=== PATIENT | male | born 1945 | race Caucasian/White ===

== ENCOUNTER 2022-05-05 18:46 | Emergency (ER) | payer MEDICAID, MEDICARE, OTHER ==
[~2022-05-05] VITALS: Ht 182.9 cm; Wt 80.0 kg
[2022-05-05 18:55] VITALS: BP 150/74
== END 2022-05-05 21:40 | disposition left against medical advice (07) ==
LOC: ER 18:46
DX: Z53.21 Procedure and treatment not carried out due to patient leaving prior to being seen by health care provider (principal); E11.65 Type 2 diabetes mellitus with hyperglycemia
CPT/HCPCS: 81003; 82962